=== PATIENT | female | born 1965 | race Caucasian/White ===

== ENCOUNTER → 2025-04-14 | Outpatient (CLI) | payer MEDICAID, SELFPAY ==
--- NOTE | 2025-04-14 12:30 | XR_ITS ---
Examination: Thyroid sonography complete TECHNIQUE: Grayscale sonographic images thyroid lobes Date and time: April 14, 2025 1245 hours INDICATIONS: Thyroid sonogram August 25, 2024 right thyroid midpole nodule 6 mm mid pole nodule 12 mm left thyroid lower pole nodule 14 mm FINDINGS: Right thyroid 4.2 cm Mid to lower pole nodule 6 x 7 mm, 11 x 7 mm Left thyroid 4.4 cm Lower pole nodule 14 x 12 mm IMPRESSION: Thyroid nodules as above
== END | disposition home or self-care (01) ==
LOC: CDIM 12:13
PROVIDERS: PCP Family Medicine; Referring Provider Family Medicine; Visit Provider Family Medicine
DX: E04.2 Nontoxic multinodular goiter (principal)
CPT/HCPCS: 76536

== ENCOUNTER → 2025-05-19 | Outpatient (CLI) | payer MEDICAID, SELFPAY ==
--- NOTE | 2025-05-19 15:30 | XR_ITS ---
Examination: Breast ultrasound complete, bilateral Date and time of exam: The second 2024 1512 hours Comparison June 01, 2024 INDICATIONS: Screening examination secondary to 2 dense breast architecture Technique: Real-time grayscale ultrasonographic imaging bilateral breasts, including all 4 quadrants as well as nipple retroareolar and axillary regions. Findings: Sonographic images right breast 3:00 cyst 8 x 7 mm No solid nodules Sonographic images left breast mass IMPRESSION: BI-RADS Category 2: Benign findings
== END | disposition home or self-care (01) ==
LOC: CDIM 14:54
PROVIDERS: PCP Family Medicine; Referring Provider Specialist; Visit Provider Specialist
DX: N60.19 Diffuse cystic mastopathy of unspecified breast (principal)
CPT/HCPCS: 76641; 77014

== ENCOUNTER → 2025-08-03 | Outpatient (CLI) | payer MEDICAID, SELFPAY ==
--- NOTE | 2025-08-03 11:30 | XR_ITS ---
Examination: Screening digital mammography, bilateral Computer aided detection 3-D breast Tomosynthesis, bilateral Date and time of exam: August 03, 2025 11:40 AM, comparison June 01, 2024 Indication: Screening Technique: Nonmagnified MLO, CC views of the breasts to been obtained, reconstructed from 3-D Tomosynthesis images. R2 computer aided detection program utilized for evaluation of suspicious masses and/or abnormal calcifications. 3-D Tomosynthesis images obtained. Findings: The breasts are heterogeneously dense, which may obscure small masses Benign calcifications. No interval suspicious masses Impression: BI-RADS category II: Benign Findings. Recommend 1 year follow-up mammogram.
== END | disposition home or self-care (01) ==
LOC: CDIM 11:12
PROVIDERS: Referring Provider Family Medicine; Visit Provider Family Medicine
DX: Z12.31 Encounter for screening mammogram for malignant neoplasm of breast (principal); R92.323 Mammographic fibroglandular density, bilateral breasts; R92.1 Mammographic calcification found on diagnostic imaging of breast
CPT/HCPCS: 77063; 77067